=== PATIENT | male | born 1980 | race African-American/Black ===

== ENCOUNTER 2020-09-09 11:28 | Emergency (ER) | payer SELFPAY ==
[~2020-09-09] VITALS: Ht 182.9 cm; Wt 88.5 kg
--- NOTE | 2020-09-09 11:40 | NUR ---
BIB AND [employer] FROM STREET TO ER MALATHI 15. SEDATED S/P VERSED 10MG GIVEN BY EMS. PER REPORT, PT WAS RUNNING AROUND THE STREET NAKED. POSSIBLE DRUG USE OF UNKNOWN KIND. PT WAS ALSO REPORTED BANG HIS HEAD AND OBTAINED A LACERATION ON THE BACK OF THE HEAD 4CM LONG, NOT ACTIVELY BLEEDING. ALSO NOTED R DAVID ORBITAL PURPLISH DISCOLORATION. BILAT ARMS NOTED WITH MULTIPLE ABRASSION. WAS AT THE BEDSIDE FOR EVAL. ORDERS RECEIVED, NOTED AND CARRIED OUT. WILL MONITOR PT
[2020-09-09] MEDS ORDERED: OLANZAPINE 10 MG VIAL IM ONE ×2 (12:50→13:00)
--- NOTE | 2020-09-09 12:57 | NUR ---
BLOOD DRAWN BY PHLEB AND URINE COLLECTED
[2020-09-09 12:58] LABS: BASOPHILS # (AUTO) 0.1 /CMM (0.0-0.2); BASOPHILS % (AUTO) 0.4 % (0.0-2.0); EOSINOPHILS % (AUTO) 0.1 % (0.0-6.0); HEMATOCRIT 50 % (39-51); HEMOGLOBIN 16.3 g/dL (13.5-17.5); LYMPHOCYTES # (AUTO) 1.3 /CMM (0.8-4.8); LYMPHOCYTES % (AUTO) 7.1 % (20.0-44.0); MEAN CORPUSCULAR HGB CONC 33 g/dl (31.0-36.0); MEAN CORPUSCULAR VOLUME 88 fL (80-96); MONOCYTES # (AUTO) 1.3 /CMM (0.1-1.30); MONOCYTES % (AUTO) 6.7 % (2.0-12.0); NEUTROPHILS # (AUTO) 16.1 /CMM (1.8-8.9); NEUTROPHILS % (AUTO) 85.7 % (43.0-81.0); PLATELET COUNT (AUTO) 196 /CMM (150-450); RED BLOOD CELL COUNT(AUTO) 5.66 MIL/uL (4.5-6.0); WHITE BLOOD COUNT (AUTO) 18.8 K/uL (4.3-11.0)
[2020-09-09 13:05] LABS: CALCIUM, SERUM 9.7 mg/dL (8.5-10.1); CARBON DIOXIDE 23 mmol/L (21-32); CHLORIDE 104 mmol/L (98-107); CREATININE 1.7 mg/dL (0.6-1.3); GLUCOSE 138 mg/dL (74-106); POTASSIUM 3.7 mmol/L (3.5-5.1); SODIUM SERUM 141 mmol/L (136-145); UREA NITROGEN, BLOOD 23 mg/dL (7-18)
[2020-09-09 13:10] LABS: BILIRUBIN,URINE SMALL (NEGATIVE); COLOR,URINE YELLOW (YELLOW); LEUKOCYTE ESTERASE ,URINE Negative (NEGATIVE); NITRITE, URINE Negative (NEGATIVE); PH,URINE 5.5 (5.0-8.0); PROTEIN,URINE 100 mg/dl (NEGATIVE); UGLUCOSE Negative (NEGATIVE)
[2020-09-09 13:11] LABS: ALANINE AMINOTRANSFERASE 17 U/L (12-78); ALBUMIN 4.5 g/dL (3.4-5.0); ALCOHOL, BLOOD < 3 mg/dL (0-0); ALKALINE PHOSPHATASE 67 U/L (46-116); ASPARTATE AMINOTRANSFERASE 26 U/L (15-37); BILIRUBIN,DIRECT 0.2 mg/dL (0.0-0.2); BILIRUBIN,TOTAL 1.4 mg/dL (0.2-1.0); TOTAL PROTEIN, SERUM 8.1 g/dL (6.4-8.2)
[2020-09-09 13:13] LABS: ACETAMINOPHEN 0 ug/ml (10-30)
[2020-09-09 13:15] LABS: BACTERIA,URINE Rare /HPF (None Seen); SQUAMOUS EPITHELIAL CELL,UR Rare /HPF (None Seen); WBC,URINE 0-2 /HPF (0-3)
[2020-09-09 13:26] LABS: CREATINE KINASE, TOTAL 389 U/L (39-308)
[2020-09-09] MEDS ORDERED: LORAZEPAM INJ 2 MG/ML VIAL IV ONE (13:30)
[2020-09-09] MEDS ORDERED: IV NS 0.9% 1,000 ML BAG IV ONE ×2 (15:00→15:30)
[2020-09-09] MEDS ORDERED: LORAZEPAM INJ 2 MG/ML VIAL ONE (17:40)
--- NOTE | 2020-09-09 17:55 | NUR ---
STARTED LAC G 20 IV LINE.
--- NOTE | 2020-09-09 19:25 | NUR ---
PT BROUGHT TO CT
--- NOTE | 2020-09-09 23:40 | NUR ---
checked patient. pt is sleeping. easily arrousable but still drowsy.
--- NOTE | 2020-09-10 01:21 | NUR ---
PT PROVIDED WITH URINAL. PT STATED "I WAS REBORN TODAY, YOU ARE MY WITNESS"
--- NOTE | 2020-09-10 05:20 | NUR ---
PT REMAINS IN BED RESTING, VSS.
--- NOTE | 2020-09-10 06:48 | NUR ---
SPOKE TO PT REGARDING BEING DISCHARGED. PT ASKED ME IF I COULD CALL [facility] TO PICK HIM UP. ER AWARE.
--- NOTE | 2020-09-10 07:28 | NUR ---
ASSESSED PT ON BED ASLEEP BUT EASILY AROUSABLE, NOT IN RESPIRATORY DISTRESS, V/S STABLE, KEPT RESTED AND COMFORTABLE. WILL CONTINUE TO MONITOR.
--- NOTE | 2020-09-10 07:43 | NUR ---
REPORT GIVEN TO ANUJ BELL FOR JUANITO
--- NOTE | 2020-09-10 12:30 | NUR ---
"SS Consult: SS consult requested for drug use & bizarre behavior. The pt. is a 40-year old Back male in ED. Per EMR, the pt. was BIBRA & PD for public indecency & bizarre behavior. Upon SS, the pt. is asleep but rousable to verbal cues. The pt. is alert & oriented x 3 and makes appropriate eye contact. Pt. unable to state how he got to the hospital. The pt. appears unkempt and remained calm & cooperative throughout interview. Per patient, his permanent address is [[address] [place] [id number]]. Per pt. 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 Pt. 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 Pt. stated that while in [place] he is staying at [facility] [[address] [facility] [address]]. The pt. denies current SI/HI and denies hallucinations. Pt. denies any ETOH/Substance use. However, pt.s lab results how he tested positive for Cocaine & Benzodiazepines. SW provided pt. with homeless resources & addiction resources to ensure safe & proper discharge planning & pt. was receptive. Pt. is able to plan for self-care. Patient provided estranged , Zoraida Lim [phone] as emergency contact. Plan: Pt. wants to be discharged to self. Pt. able to plan for self-care. Pt. refused to sing homeless waiver. LUI provided pt. with the following resources: Substance Abuse resources provided included: [facility] Substance Abuse Self-Helpline ([facility]) ; [facility] [address] [facility]. [place] [id number] ; [facility] [address] [facility] [address] ; [facility] [address] [facility] [address] ; [facility] [address] [facility] [address] ; [facility] [address] [facility] [address] ; [facility] [address] [facility] [phone] ; [facility] Substance Abuse Helpline([facility] ; [facility] ; [facility] [place]; [facility] [place]; [facility] [place]; [facility] [place]; [facility]; [facility] [place] [facility]; [facility]; [facility]. [facility]; Alcoholics Anonymous -SFV; Ty-Lywf-Plsjjat ; Marijuana Anonymous -[facility]; Narcotics Anonymous www.na.org. Year-round shelters: [place] [facility] [address] [place], [place] [phone] ; [facility] [address] [place] [address]; [facility] Ey[address]ttgi47[address] [facility] [address] Winter Shelters: [place] [facility] Provider: Annette of [place] ID Address: [address] [facility] Center[facility] [place], [address] # of Beds: 47 Population Served: [facility] 6 | [facility] Pamela Beth [place] Provider: Home at Last Address: [address], [address] # of Beds: 66 Population Served: [employer] [place] Provider: First to Serve Address: [address] [facility], [address] # of Beds: 56 Population Served: Ankush Pena Provider: SSFallon/ [facility] Address: [address] [facility], [address] # of Beds: 49 Population Served: Coed SPA 8 | [place] Provider: First to Serve Address: [address] [place], [place] [address]Nathalie Oates [address] # of Beds: 37 Population Served: Coed Hygiene: [facility]: [address] [place] ; [facility] [address] [facility] ; [facility] [address], [place] . Food Resources: [place] [facility]- [address] [facility]. [place]; Meet Each Need with Dignity ([facility]) [address] [facility]; [facility] [address] [facility]; [facility] 8577 [facility]. Mental Health resources provided: [facility] [address] [place], [place] [phone] ; [facility] [address] [facility] [address], [place], [place] [phone] ; [facility] [address], [place] [phone] ; [facility] [address] [place], [place] [id number] Healthcare Clinics: [facility] [address] [facility] [place], [address] [place]. [place] ; [facility] [address] [facility] [address] [place] [address]; [facility] [address] [facility]. [place] [phone]"
[2020-09-10 13:00] VITALS: BP 129/81
--- NOTE | 2020-09-10 13:00 | NUR ---
IV removed. Catheter intact and site benign. Pressure and 4x4 applied to site. No bleeding noted. Patient discharged to home in stable condition. Written and verbal after care instructions given to Patient's friend verbalizes understanding of instruction.
== END 2020-09-10 13:01 | disposition home or self-care (01) ==
LOC: ER 11:31
DX: S01.01XA Laceration without foreign body of scalp, initial encounter (principal); R94.31 Abnormal electrocardiogram [ECG] [EKG]; Z59.0 Homelessness; X58.XXXA Exposure to other specified factors, initial encounter; Y93.89 Activity, other specified; Y92.89 Other specified places as the place of occurrence of the external cause; Y99.8 Other external cause status
CPT/HCPCS: 12001; 36415; 70450; 71045; 80048; 80076; 80299; 80307; 80320; 81001; 82550; 82553; 85025; 93005; 96361; 96372; 96374; 99285; A6403; J2060; J3490; J7030; G0480

== ENCOUNTER 2020-10-31 08:02 | Emergency (ER) | payer MEDICAID ==
[~2020-10-31] VITALS: Ht 188 cm; Wt 86.2 kg
[2020-10-31 08:10] VITALS: BP 137/91
--- NOTE | 2020-10-31 08:25 | NUR ---
STAPLE REMOVED BY .
--- NOTE | 2020-10-31 08:26 | NUR ---
Patient given written and verbal discharge instructions. Patient verbalizes understanding of instructions. Patient is ambulatory with steady gait. Refuses offer of care home placement. Patient given list of available shelters in surrounding area.
== END 2020-10-31 08:27 | disposition home or self-care (01) ==
LOC: ER 08:05
DX: S01.01XD Laceration without foreign body of scalp, subsequent encounter (principal); Z59.0 Homelessness; X58.XXXD Exposure to other specified factors, subsequent encounter